=== PATIENT | female | born 1995 | race Hispanic/Latino ===

== ENCOUNTER 2020-04-25 15:02 | Emergency (ER) | payer OTHER ==
[2020-04-25] MEDS ORDERED: Ibuprofen 800 MG TAB ONE (16:16)
[2020-04-27 12:22] LABS: SARS-CoV-2 MS2 Positive; SARS-CoV-2 N Gene Positive; SARS-CoV-2 S Gene Positive; SARS-CoV-2 by NAA DETECTED (NotDetected); SARS-CoV-2 orf1ab Positive
== END 2020-04-25 16:20 | disposition home or self-care (01) ==
LOC: MADERS 15:02
DX: U07.1 COVID-19 (principal)
CPT/HCPCS: 87635; 99284; U0003

== ENCOUNTER 2021-07-27 19:57 | Emergency (ER) | payer OTHER ==
[2021-07-27] MEDS ORDERED: Dexamethasone 4 MG TAB ONE (20:59)
[2021-07-27] MEDS ORDERED: Cephalexin 500 MG CAP ONE (20:59)
== END 2021-07-27 21:25 | disposition home or self-care (01) ==
LOC: MADERS 19:57
DX: L03.113 Cellulitis of right upper limb (principal); L03.114 Cellulitis of left upper limb; L03.115 Cellulitis of right lower limb; L03.116 Cellulitis of left lower limb; L03.313 Cellulitis of chest wall; L03.311 Cellulitis of abdominal wall; L03.312 Cellulitis of back [any part except buttock and flank]; L25.9 Unspecified contact dermatitis, unspecified cause
CPT/HCPCS: 99282; J8540

== ENCOUNTER 2021-10-01 20:17 | Emergency (ER) | payer OTHER ==
[2021-10-02 20:03] LABS: SARS-CoV-2 PCR by NAA Not Detected (NotDetected)
== END 2021-10-01 21:19 | disposition home or self-care (01) ==
LOC: MADERS 20:17
DX: O99.891 Other specified diseases and conditions complicating pregnancy (principal); R50.9 Fever, unspecified; Z3A.01 Less than 8 weeks gestation of pregnancy; Z20.822 Contact with and (suspected) exposure to COVID-19
CPT/HCPCS: 99283; U0003; U0005

== ENCOUNTER 2022-01-26 16:32 | Emergency (ER) | payer OTHER ==
[2022-01-26 17:08] LABS: Bilirubin Negative (Negative); Blood, Urine Negative (Negative); Clarity Cloudy (Clear); Glucose, Urine (Dipstick) Negative (Negative); Ketone, Urine Negative (Negative); Leukocyte Small (Negative); Nitrite Negative (Negative); Protein, Urine (Dipstick) Trace mg/dL (Neg-Trace); Urobilinogen 0.2 mg/dL (Less than 2)
[2022-01-26 17:16] LABS: Bacteria/HPF Rare-Few HPF (None Seen); RBC/HPF None Seen HPF (0-3); WBC/HPF 0-3 HPF (0-3); Yeast-Hyphae 1+ HPF (None Seen)
[2022-01-26 17:17] LABS: Mucous/LPF 2+ LPF (<2+)
== END 2022-01-26 18:30 | disposition left against medical advice (07) ==
LOC: MADERS 16:32
DX: O26.892 Other specified pregnancy related conditions, second trimester (principal); R25.2 Cramp and spasm; Z3A.23 23 weeks gestation of pregnancy; Z79.899 Other long term (current) drug therapy
CPT/HCPCS: 81001; 87086; 99284